=== PATIENT | female | born 1965 | race African-American/Black ===

== ENCOUNTER 2024-07-19 22:09 | Emergency (ER) | payer OTHER ==
[~2024-07-19] VITALS: Ht 175.3 cm; Wt 70.0 kg
[2024-07-19 22:15] VITALS: O2SAT 99
[2024-07-19] MEDS: SODIUM CHLORIDE 0.9% 1,000 ML IV ONE (23:29)
[2024-07-19 23:31] LABS: EOSINOPHILS % 0.8 % (0.0-5.0); HEMATOCRIT. 29.3 % (36.0-48.0); HEMOGLOBIN. 9.3 g/dL (12.0-16.0); LYMPHOCYTES % 15.5 % (20.0-50.0); MEAN CORPUSCULAR HEMOGLOBIN 25.6 pg (28.0-32.0); MEAN CORPUSCULAR HGB CONC 31.8 g/dL (31.0-37.0); MEAN CORPUSCULAR VOLUME 80.6 fL (81.0-99.0); MEAN PLATELET VOLUME 6.7 fl (7.4-10.4); MONOCYTES % 7.3 % (2.0-8.0); NEUTROPHILS % 76.4 % (40.0-76.0); PLATELET 413 x1000/uL (130-400); RED BLOOD CELL COUNT 3.63 mill/uL (4.2-5.4); RED CELL DISTRIBUTION WIDTH 16.7 % (11.6-14.6); WHITE BLOOD COUNT 5.9 x1000/uL (4.5-11.0)
[2024-07-19 23:35] LABS: CHLORIDE 111 mEq/L (98-107); POTASSIUM 3.6 mEq/L (3.5-5.1); SODIUM 142 mEq/L (136-145)
[2024-07-19 23:36] LABS: CARBON DIOXIDE 24 mEq/L (21-32)
[2024-07-19 23:41] LABS: CREATININE 0.7 mg/dL (0.6-1.0); GLUCOSE 102 mg/dL (70-105); UREA NITROGEN BLOOD 11 mg/dL (9-23)
[2024-07-19 23:42] LABS: TROPONIN I HIGH SENSITIVITY 8 ng/L (3.0-34)
[2024-07-20 03:55] LABS: TROPONIN I HIGH SENSITIVITY 7 ng/L (3.0-34)
[2024-07-20 11:20] VITALS: BP 137/75; PULSE 65; RESP 20; TEMP 36.66960; O2SAT 99
== END 2024-07-20 11:29 | disposition left against medical advice (07) ==
LOC: ER 22:09 → EDBEDREQDT 07-20 02:03 → EDBEDREQ 07-20 02:03 → EDBEDREQTM 07-20 02:03 → ER 07-20 11:29
DX: R55 Syncope and collapse (principal); D64.9 Anemia, unspecified; I10 Essential (primary) hypertension; Z98.890 Other specified postprocedural states
CPT/HCPCS: 80048; 85025; 86850; 86900; 86901; 84484 ×2; 36415 ×2; 71045; 96360; 96361; 99285; J7030; Z7610 ×2